=== PATIENT | male | born 1980 | race African-American/Black ===

== ENCOUNTER 2016-11-29 21:05 | Emergency (ER) | payer OTHER ==
--- NOTE | ~2016-11-29 | US85 ---
[facility] A Service of [facility] RADIOLOGY TEXT RESULTS PATIENT: DONALD COREY LOCATION: CFTX : 82 UNIT #: [id number] AGE: [address]: Ilya Ward SEX: M ORDER DR: [id number] [facility] [address] [place], [place] [address] [id number] E MR#: [id number] Acc #: [id number] NAME: DONALD COREY : 1980 SEX: M STUDY DATE/TIME: 11/29/2016 21:49 UNIT: [facility] ROOM: STUDY DESCRIPTION: [facility] [employer] [facility] Attending Physician: Ilya Ward P.A.-C. Ordering Physician: Ilay Ward P.A.-C. Primary Care Physician: Primary Care Physician No MEDICAL IMAGING REPORT This report is preliminary unless electronic signature is present EXAM Left lower extremity venous ultrasound INDICATIONS Left lower extremity calf pain for 4 days. FINDINGS The venous structures of the left lower extremity were evaluated with grayson-scale imaging, color flow Doppler and grayson-scale imaging. The venous structures all show compression and flow, except for the popliteal vein, which is thrombosed. IMPRESSION There is recent DVT in the left popliteal vein. Dictated by... Baljeet Beach M.D. THIS IS AN ELECTRONICALLY VERIFIED REPORT Baljeet Beach M.D. at 11/30/2016 1:59 AM GIA/vinay TD: 11/29/2016 23:46 JOB #: [id number] MEDICAL IMAGING REPORT Page 1 of 1 COPY
== END 2016-11-29 23:30 | disposition home or self-care (01) ==
LOC: CFTX 21:05
DX: I80.222 Phlebitis and thrombophlebitis of left popliteal vein (principal); F17.210 Nicotine dependence, cigarettes, uncomplicated
CPT/HCPCS: 93971; 99284